=== PATIENT | female | born 1990 | race Two or more races ===

== ENCOUNTER 2020-11-03 23:38 | Emergency (ER) | payer OTHER ==
[~2020-11-03] VITALS: Ht 165.1 cm; Wt 70.0 kg
[2020-11-04] MEDS ORDERED: DEXT 5%/LR + PITOCIN 20UNITS/L 1,000 ML IV ONE (00:15)
[2020-11-04] MEDS ORDERED: SODIUM CHLORIDE 0.9% 1,000 ML IV ONE ×2 (00:15→05:00)
[2020-11-04 00:40] LABS: BASOPHILS % 0.1 % (0.0-2.0); EOSINOPHILS % 0.2 % (0.0-5.0); HEMATOCRIT. 30.6 % (36.0-48.0); HEMOGLOBIN. 10.4 g/dL (12.0-16.0); LYMPHOCYTES % 11.2 % (20.0-50.0); MEAN CORPUSCULAR HEMOGLOBIN 30.3 pg (28.0-32.0); MEAN CORPUSCULAR VOLUME 89.1 fL (81.0-99.0); MEAN PLATELET VOLUME 8.7 fl (7.4-10.4); MONOCYTES % 7.1 % (2.0-8.0); NEUTROPHILS % 81.4 % (40.0-76.0); PLATELET 147 x1000/uL (130-400); RED BLOOD CELL COUNT 3.43 mill/uL (4.2-5.4); RED CELL DISTRIBUTION WIDTH 12.7 % (11.6-14.6)
[2020-11-04] MEDS ORDERED: MORPHINE SULFATE 4 MG/ML CPJ (NOT FOR IM USE) IV STA (00:43)
[2020-11-04] MEDS ORDERED: ONDANSETRON HCL 4MG/2ML INJ IV STA (00:43)
[2020-11-04 00:47] LABS: CHLORIDE 106 mEq/L (98-107)
[2020-11-04 01:33] LABS: B-HCG QUANTITATIVE 24192 mIU/mL (<3)
[2020-11-04] MEDS ORDERED: ONDA4TAB5 MT (01:46)
[2020-11-04 05:23] LABS: HEMATOCRIT 23.5 % (36.0-48.0); HEMOGLOBIN 7.8 g/dL (12.0-16.0)
[2020-11-04 06:45] VITALS: BP 99/60
== END 2020-11-04 09:10 | disposition left against medical advice (07) ==
LOC: ER 23:38 → ENRESERV 11-04 07:20 → ER 11-04 09:10 → CANBEDREQ 11-04 16:48
DX: O03.4 Incomplete spontaneous abortion without complication (principal); N93.9 Abnormal uterine and vaginal bleeding, unspecified; D64.9 Anemia, unspecified
CPT/HCPCS: 36415; 76801; 76817; 80053; 84702; 85014; 85018; 85025; 86850; 86900; 86901; 88309; 93005; 96361; 96365; 96375; 99285; J2270; J2405; J2590; J7030

== ENCOUNTER 2021-04-17 10:00 | Emergency (ER) | payer MEDICAID, OTHER ==
[~2021-04-17] VITALS: Ht 157.5 cm; Wt 59.0 kg
[~2021-04-17 10:00] MED LIST: ONDA4TAB5 MT
[2021-04-17] MEDS ORDERED: ACETAMINOPHEN 325MG TABLET PO ONE (10:45)
[2021-04-17] MEDS ORDERED: ACET-2708 MT (13:40)
[2021-04-17 17:00] VITALS: BP 133/97
== END 2021-04-17 18:24 | disposition home or self-care (01) ==
LOC: ER 10:00
DX: B34.9 Viral infection, unspecified (principal); F17.210 Nicotine dependence, cigarettes, uncomplicated; Z20.822 Contact with and (suspected) exposure to COVID-19; Z87.19 Personal history of other diseases of the digestive system
CPT/HCPCS: 81025; 87426; 99285

== ENCOUNTER 2022-01-01 21:48 | Inpatient (IN) | payer OTHER ==
[~2022-01-01] VITALS: Ht 157.5 cm; Wt 85.3 kg
[~2022-01-01 21:48] MED LIST changes: +ACET-2708 MT
[2022-01-02] MEDS ORDERED: RHO(D) IMMUNE GLOBULIN 300 MCG/SYR IM ONE (00:30)
[2022-01-02] MEDS ORDERED: LIDOCAINE HCL 1% 20ML VIAL (Pyxis) INJ INFIL SCH (00:30)
[2022-01-02] MEDS ORDERED: NALOXONE HCL 0.4 MG/ML 1ML VIAL IM PRN (00:30)
[2022-01-02] MEDS ORDERED: MISOPROSTOL 100MCG TABLET VG SCH (00:30)
[2022-01-02] MEDS ORDERED: PENICILLIN G POTASSIUM 5 MMU in DEXT 5% WATER 100 ML IV SCH (01:00)
[2022-01-02] MEDS: DEXT 5%/LR + PITOCIN 20UNITS/L 1,000 ML IV SCH ×2 (01:03→23:01)
[2022-01-02] MEDS ORDERED: LACTATED RINGERS 1,000 ML IV SCH (01:15)
[2022-01-02 01:36] LABS: BASOPHILS % 0.1 % (0.0-2.0); HEMATOCRIT. 33.2 % (36.0-48.0); HEMOGLOBIN. 11.3 g/dL (12.0-16.0); LYMPHOCYTES % 20.5 % (20.0-50.0); MEAN CORPUSCULAR HEMOGLOBIN 29.7 pg (28.0-32.0); MEAN CORPUSCULAR VOLUME 87.7 fL (81.0-99.0); MEAN PLATELET VOLUME 9.7 fl (7.4-10.4); MONOCYTES % 7.8 % (2.0-8.0); NEUTROPHILS % 70.6 % (40.0-76.0); PLATELET 203 x1000/uL (130-400); RED BLOOD CELL COUNT 3.79 mill/uL (4.2-5.4); RED CELL DISTRIBUTION WIDTH 13.7 % (11.6-14.6)
[2022-01-02 01:54] LABS: INR 0.9; PARTIAL THROMBOPLASTIN TIME 27.4 sec (23.4-31.0); PROTHROMBIN TIME 9.8 sec (9.6-11.0)
[2022-01-02 02:13] LABS: CHLORIDE 107 mEq/L (98-107)
[2022-01-02] MEDS ORDERED: PREN1TAB78 PO (02:18)
[2022-01-02] MEDS ORDERED: FERR325T6 PO (02:18)
[2022-01-02 02:29] LABS: CLARITY URINE CLEAR (CLEAR); COLOR URINE YELLOW (YELLOW); KETONES URINE NEGATIVE (NEGATIVE); OCCULT BLOOD URINE NEGATIVE (NEGATIVE); PROTEIN URINE TRACE (NEGATIVE); SPECIFIC GRAVITY URINE 1.015 (1.005-1.030)
[2022-01-02 02:30] LABS: LEUKOCYTE ESTERASE URINE NEGATIVE (NEGATIVE); NITRITE URINE NEGATIVE (NEGATIVE); UROBILINOGEN URINE 0.2 E.U./dL (0.2-1.0)
[2022-01-02 04:51] LABS: *AMPHETAMINES SCREEN URINE NEGATIVE (NEGATIVE); *BARBITURATES SCREEN URINE NEGATIVE (NEGATIVE); *BENZODIAZEPINES SCREEN URINE NEGATIVE (NEGATIVE); *COCAINE SCREEN URINE NEGATIVE (NEGATIVE); CANNABINOID URINE SCREEN NEGATIVE (NEGATIVE); METHADONE URINE SCREEN NEGATIVE (NEGATIVE); OPIATES URINE SCREEN NEGATIVE (NEGATIVE); PHENCYCLIDINE URINE SCREEN NEGATIVE (NEGATIVE)
[2022-01-02] MEDS: PENICILLIN G POTASSIUM 2.5 MMU in DEXTROSE 5% WATER 50 ML IV SCH ×4 (06:10→21:20)
[2022-01-02 06:46] LABS: HEPATITIS B SURFACE ANTIGEN NEGATIVE
[2022-01-02] MEDS: BUTORPHANOL TARTRATE 2 MG/ML VIAL IV PRN ×3 (08:22→13:39)
[2022-01-02] MEDS ORDERED: FENTANYL CITRATE/PF 50MCG/ML 2ML VIAL ONE ×2 (15:12→20:34)
[2022-01-02] MEDS ORDERED: ROPIVACAINE HCL/PF EPIDURAL 200 ML EPI ONE (15:12)
[2022-01-02] MEDS ORDERED: ROPIVACAINE HCL/PF EPIDURAL 200 ML EPI SCH (15:15)
[2022-01-02] MEDS ORDERED: METHYLERGONOVINE MALEATE 0.2 MG/ML IM PRN (22:30)
[2022-01-02] MEDS ORDERED: GLYCERIN/WITCH HAZEL LEAF MEDICATED PAD TOP PRN (22:30)
[2022-01-02] MEDS ORDERED: ACETAMINOPHEN 500MG TABLET PO PRN (22:30)
[2022-01-02] MEDS ORDERED: DIPHENHYDRAMINE 25MG CAPSULE PO PRN (22:30)
[2022-01-02] MEDS ORDERED: LANOLIN OINT 7GM TUBE TOP PRN (22:30)
[2022-01-02] MEDS ORDERED: OXYCODONE HCL/ACETAMINOPHEN 5/325MG TABLET PO PRN (22:30)
[2022-01-02] MEDS ORDERED: BENZOCAINE/LANOLIN/ALOE VERA SPRAY TOP PRN (22:30)
[2022-01-02] MEDS ORDERED: HEMORRHOIDAL SUPP PR PRN (22:30)
[2022-01-02] MEDS ORDERED: DEXT 5%/LR + PITOCIN 20UNITS/L 1,000 ML IV SCH (22:30)
[2022-01-02] MEDS ORDERED: RHO(D) IMMUNE GLOBULIN 300 MCG/SYR IM PRN (22:30)
[2022-01-02] MEDS ORDERED: BISACODYL 10MG SUPP PR PRN (22:30)
[2022-01-03 01:00] VITALS: BP 136/81
[2022-01-03] MEDS: IBUPROFEN 800MG TABLET PO PRN ×2 (02:43→18:30)
[2022-01-03 06:00] VITALS: BP 125/82
[2022-01-03] MEDS: MAGNESIUM/ALUMINUM HYDROXIDE/SIMETHICONE 30ML UDC PO SCH ×4 (07:30→21:21)
[2022-01-03 07:44] VITALS: BP 136/87
[2022-01-03] MEDS: SIMETHICONE 80MG TABLET CHEW PO SCH ×3 (07:50→21:21)
[2022-01-03] MEDS: FERROUS SULFATE 325MG TABLET PO SCH ×3 (07:57→17:25)
[2022-01-03 08:20] LABS: BASOPHILS % 0.1 % (0.0-2.0); EOSINOPHILS % 0.2 % (0.0-5.0); HEMATOCRIT. 36.7 % (36.0-48.0); HEMOGLOBIN. 12.1 g/dL (12.0-16.0); MEAN CORPUSCULAR HEMOGLOBIN 29.1 pg (28.0-32.0); MEAN CORPUSCULAR VOLUME 88.1 fL (81.0-99.0); MEAN PLATELET VOLUME 9.4 fl (7.4-10.4); MONOCYTES % 8.1 % (2.0-8.0); NEUTROPHILS % 77.6 % (40.0-76.0); PLATELET 207 x1000/uL (130-400); RED BLOOD CELL COUNT 4.16 mill/uL (4.2-5.4); RED CELL DISTRIBUTION WIDTH 14.3 % (11.6-14.6)
[2022-01-03] MEDS ORDERED: PRENATAL VIT/FE FUMARATE/FA TABLET PO SCH (09:00)
[2022-01-03 15:47] VITALS: BP 122/81
[2022-01-03 19:30] VITALS: BP 120/82
[2022-01-03] MEDS ORDERED: DOCUSATE SODIUM 100MG CAPSULE PO SCH (21:00)
[2022-01-04] MEDS: IBUPROFEN 800MG TABLET PO PRN (00:54)
[2022-01-04 04:00] VITALS: BP 106/66
[2022-01-04] MEDS ORDERED: IBUP-2030 PO (04:57)
[2022-01-04] MEDS ORDERED: FERR-63 PO (04:57)
[2022-01-04 10:00] VITALS: BP 107/69
== END 2022-01-04 14:00 | disposition home or self-care (01) | DRG 560 ==
LOC: 8 EST LDRP 21:48 → OBSVTOIN 21:48 → 8EST 01-03 01:00
PROVIDERS: ADMIT Obstetrics & Gynecology; ATTEND Obstetrics & Gynecology
PROC: 10E0XZZ Delivery of Products of Conception, External Approach (ICD-10-PCS; principal; 2022-01-02)
PROC: 3E0R3BZ Introduction of Anesthetic Agent into Spinal Canal, Percutaneous Approach (ICD-10-PCS; 2022-01-02)
PROC: 00HU33Z Insertion of Infusion Device into Spinal Canal, Percutaneous Approach (ICD-10-PCS; 2022-01-02)
DX: O60.14X0 Preterm labor third trimester with preterm delivery third trimester, not applicable or unspecified (principal); Z37.0 Single live birth; O42.913 Preterm premature rupture of membranes, unspecified as to length of time between rupture and onset of labor, third trimester; O69.81X0 Labor and delivery complicated by cord around neck, without compression, not applicable or unspecified; Z20.822 Contact with and (suspected) exposure to COVID-19; Z3A.35 35 weeks gestation of pregnancy; Z79.899 Other long term (current) drug therapy
CPT/HCPCS: 36415; 76805; 76818; 80053; 80305; 81003; 85025; 86592; 86703; 86762; 86850; 86900; 87340; 87426; 88307; 99281; J0595; J2540; J2590; J2795; J3010; J7060; J7120